=== PATIENT | male | born 1960 | race Caucasian/White ===

== ENCOUNTER 2018-12-10 09:51 | Observation (INO) ==
--- NOTE | 2018-11-29 08:36 | PAT Medication Instructions ---
Medication Instructions Date of Service November 29, 2018 Home Medications atorvastatin 10 mg PO PM tamsulosin [Flomax] 0.4 mg PO HS Take morning of surgery NOTHING TO EAT OR DRINK AFTER MIDNIGHT Take evening before surgery atorvastatin 10 mg PO PM tamsulosin [Flomax] 0.4 mg PO HS Other Notes If you have any questions please call us at [phone] or [phone] or [phone] or [phone]
--- NOTE | 2018-11-29 09:24 | Anesthesiology Consultation ---
Date of Service November 29, 2018 Assessment & Plan (1) Encounter for pre-operative examination: Chart Review Chart Review: Acceptable Risk for Surgery and Patient seen in Pre Admission Testing Consults Requested none Teaching & Discussion Pre-Anesthesia Teaching/Discussion Notes: Instructed NPO after midnight before surgery, except medications with 15 cc of water. Medication instructions provided according to the PAT guidelines. History Surgery Operation Date: 12/10/18 10:45 Proposed Procedures p Transurethral Resection Prostate - Satish Haywood MD Height/Weight Height: 5 ft 9 in Weight: 95.9 kg Allergies Allergy/AdvReac Type Severity Reaction Status Date / Time No Known Allergies Allergy Unknown Verified 11/27/18 08:15 Medications Home Medications Medication Instructions Recorded Confirmed Last Taken atorvastatin 10 mg PO PM 11/27/18 11/27/18 Unknown tamsulosin [Flomax] 0.4 mg PO HS 11/27/18 11/27/18 Unknown Past Medical History Medical History BPH (benign prostatic hyperplasia) History of abnormal electrocardiogram PT STATES HE HAD AN EKG 8 YEARS PRIOR THAT WAS ABNORMAL. PT HAD A STRESS TEST AND EVAL WHICH WAS NEGATIVE. NO FURTHER DIAGNOSTICS, NO COMPLICATIONS. Hyperlipidemia Past Surgical History Surgical History History of appendectomy History of colonoscopy History of excision of pilonidal cyst History of total hip arthroplasty RIGHT Past Anesthesia History No Hx of Anesthesia Complications (Does get panicky with anesthesia he thinks. ) and No Family Hx of Anesthesia Complications History of PONV No Motion Sickness Screening History of Motion Sickness: No Social History Smoking Status: Never smoker Do You Dip or Chew Tobacco: No (QUIT 2 MONTHS AGO. ) Hx Alcohol Use: Yes Alcohol type: other alcohol intake frequency: holidays/special occasions only Hx Substance Use: No substance use type: does not use Exercise / Class Metabolic Activity II 4-5 Yardwork/Stairs/Walk up hill (Goes to gym for 45 minutes 3 times per week and also walks a few miles 3 times per week. Able to climb FOS. Denies CP or SOB. ) Review of Systems Patient denies chest pain, shortness of breath, dyspnea on exertion, reflux, cough, wheezing, palpitations. +joint pain (left hip) Physical Exam Vital Signs BP: 162/94 P: 63 R: 16 T: 98.5 SPO2: 97% on RA ENMT Thyromental Distance: > or= 3.5 Finger Breadths (3.5) Mallampati Class: III Neck normal visual inspection and trachea midline; neck extension not limited Respiratory normal respiratory effort Auscultation: lungs clear to auscultation bilaterally Cardiovascular Rate/Rhythm: regular rate and regular rhythm Heart Sounds: no murmur Vessels: no carotid bruit Neurologic moves all extremities Psychiatric Orientation: alert and oriented x 3 Testing Electrocardiogram Date: 11/29/18 Findings: + SB @ (59) and + no change from (11/23/04) Left axis deviation. Chest X-Ray Date: 11/29/18 Findings: + NAD Other Testing CT ABD/PELVIS 11/22/18: IMPRESSION: 1. Moderate bilateral hydronephrosis and hydroureter, likely secondary to bladder outlet obstruction 2. Distended bladder measuring 17 cm in length. The bladder is thick walled trabeculated and there is a small bladder diverticulum. This is likely secondary to bladder outlet obstruction secondary to enlarged prostate 3. Markedly enlarged prostate (8 cm) 4. No evidence of bowel obstruction. No evidence of free air. Laboratory Results 11/29/18 09:42 11/29/18 09:42 BUN/Cr are improving.
--- NOTE | 2018-11-29 10:06 | XRay Report ---
XR chest Pre-admission PA/Lat CLINICAL HISTORY: pat preoperative evaluation COMPARISON STUDY: No previous studies for comparison. FINDINGS: The bones soft tissues and hemidiaphragms are normal. The cardiomediastinal silhouette is n ormal. The lungs are clear. The pulmonary vasculature is normal. IMPRESSION: Negative chest. The above report was generated using voice recognition software. It may contain grammatical, syntax or spelling errors. Electronically signed by: Rocky Howard M.D. 11/29/2018 10:05 AM
[2018-11-29 11:37] LABS: Basophils # (auto) 0.02 K/uL (0-0.2); Basophils % (auto) 0.2 %; Eosinophils # (auto) 0.17 K/uL (0-0.5); Eosinophils % (auto) 1.4 %; Hematocrit (blood only) 42.9 % (42-52); Hemoglobin 14.2 g/dL (14.0-18.0); Immature Granulocytes # (auto) 0.05 K/uL (0.00-0.02); Immature Granulocytes % (auto) 0.4 %; Lymphocytes # (auto) 1.57 K/uL (1.2-3.4); Lymphocytes % (auto) 12.9 %; Mean Corpuscular Hgb Conc 33.1 g/dL (32-36); Mean Corpuscular Volume 93.1 fL (80-100); Mean Platelet Volume 10.5 fL (7.4-10.4); Monocytes # (auto) 1.16 K/uL (0.11-0.59); Monocytes % (auto) 9.6 %; Neutrophils # (auto) 9.16 K/uL (1.4-6.5); Neutrophils % (auto) 75.5 %; Platelet Count 303 K/uL (130-400); RDW Coefficient of Variation 12.5 % (11.5-14.5); RDW Standard Deviation 42.2 fL (36.4-46.3); Red Blood Count 4.61 M/uL (4.7-6.1); White Blood Count 12.13 K/uL (4.8-10.8)
[2018-11-29 11:44] LABS: BUN Creatinine Ratio 15.3 (10-20); Calcium 9.5 mg/dl (8.5-10.1); Creatinine Clr Calc Pharmacy 46.3 ml/min; Est GFR (African American) 42.4; Est GFR (Non-African American) 36.6; Potassium 4.3 mmol/L (3.5-5.1)
[~2018-12-10 09:51] MED LIST: SODIUM CHLORIDE 0.9% 1000ML IV SCH; cefTRIAXone SODIUM 1,000 MG in DEXTROSE 5% 50 ML IV SCH
[2018-12-10] MEDS ORDERED: PHENYLEPHRINE 100MCG/ML 5ML SYR IV PRN (11:45)
[2018-12-10] MEDS ORDERED: ATROPINE SULFATE 0.1 MG/ML 10ML SYR IV PRN (11:45)
[2018-12-10] MEDS ORDERED: fentaNYL citrate 100 MCG/2 ML VIAL IV PRN (11:45)
[2018-12-10] MEDS ORDERED: PROMETHAZINE HCL 12.5 MG in SODIUM CHLORIDE 0.9% 50 ML IV PRN (11:45)
[2018-12-10] MEDS ORDERED: ePHEDrine sulfate 50 MG/ML AMP IV PRN (11:45)
[2018-12-10] MEDS ORDERED: HYDROmorphone INJ 1 MG/ML SYRINGE IV PRN (11:45)
[2018-12-10] MEDS ORDERED: ONDANSETRON INJ 2 MG/ML 2 ML VIAL IV PRN (11:45)
[2018-12-10] MEDS ORDERED: LIDOCAINE HCL 2% 2 ML VIAL/AMP(20MG/ML) INFIL ONE (12:18)
[2018-12-10] MEDS ORDERED: ONDANSETRON INJ 2 MG/ML 2 ML VIAL ONE (12:18)
[2018-12-10] MEDS ORDERED: fentaNYL citrate 100 MCG/2 ML VIAL ONE ×2 (12:18→13:51)
[2018-12-10] MEDS ORDERED: PROPOFOL IV EMULSION 10 MG/ML 20 ML VIAL IV ONE (12:18)
[2018-12-10] MEDS ORDERED: DEXAMETHASONE SOD INJ 4 MG/ML VIAL ONE (12:18)
[2018-12-10] MEDS ORDERED: MIDAZOLAM HCL 1 MG/ML 2ML VIAL ONE (12:19)
--- NOTE | 2018-12-10 12:42 | History & Physical Bridge Note ---
Date of Service December 10, 2018 History & Physical Bridge Note I have examined the patient, reviewed the History & Physical and in the interval since the performance of the History & Physical I have noted the following changes of clinical significance: no changes noted
[2018-12-10] MEDS ORDERED: GLYCOPYRROLATE 0.2 MG/ML VIAL ONE (14:43)
--- NOTE | 2018-12-10 15:27 | Operative Report ---
Post Operative Report Pre & Post Diagnosis Operation Date: 12/10/18 11:35 Pre-Op Diagnosis: Urinary Retention, Hydronephrosis Post-Op Diagnosis: Urinary Retention, Hydronephrosis Procedure Operation Date: 12/10/18 11:35 Actual Procedures p Cystoscopy, Transurethral Resection of the Prostate - Satish Haywood MD Surgeon Brenden Haywood MD Motor Vehicle Salesperson none Estimated Blood Loss 20 Findings Consistent with Post-Op Diagnosis Specimens Prostate chips Description of Procedure Patient was identified in the preoperative holding area, appropriate informed consents reviewed and completed and the patient was transported to the operating suite. Upon arrival he received appropriate preoperative antibiotics the form of ceftriaxone. Adequate general anesthesia was achieved, patient placed in dorsal lithotomy position where sterilely prepped and draped in standard fashion. Of note the patient is previously been in urinary retention with renal failure and bilateral hydronephrosis, suspected to occur secondary to an extremely large prostate causing obstruction. To begin my case, I passed a 27 Swazi resectoscope with 30 degree lens and visual obturator. Inspection revealed substantial lateral lobe hypertrophy, very long prostate and a large intravesical median lobe. After inserting my scope maximally, I could barely reached the true lumen of the bladder secondary to the length of the prostate and intravesical median lobe. I was able to visualize the ureteral orifices are not along the sides of the intravesical median lobe. With care to avoid encroachment upon this, I passed a button electrode and I incised at 5 and 7:00 underneath the median lobe. I then exchange the button for a resecting loop and resected the intravesical median lobe flush with the bladder neck. This greatly improved my visualization. This was a significant amount of tissue that was removed. I then turned my attention the left lateral lobe and utilizing a combination of the button and loop electrode, I resected the left lateral lobe followed by the right lateral lobe. After working for nearly 2-1/2 hours, I felt that we had reached a good stopping point, and I obtain meticulous hemostasis and evacuated all chips. The chips were collected and passed off the table. Inspection revealed some still redundant lateral lobe tissue as he certainly has more tissue which is resectable, however appears that his prostatic urethra is widely patent and drastically improved from his preoperative status. After confirming again excellent hemostasis and that all chips had been evacuated, I left the bladder full and withdrew the scope. I placed a 22 Swazi three-way Bella catheter the patient was reversed from anesthesia and taken to the PACU in stable condition. There were no complications. I attest to the content of the Intraoperative Record and any orders documented therein. Any exceptions are noted below.
[2018-12-10] MEDS ORDERED: ACETAMINOPHEN 325 MG TAB PO PRN (15:38)
[2018-12-10] MEDS ORDERED: HYDROCODONE/ACETAMOPHEN 5/325MG TAB PO PRN ×2 (15:38)
[2018-12-10] MEDS ORDERED: LABETALOL HCL IV 5 MG/ML 20ML IV ONE (16:11)
[2018-12-10] MEDS: LABETALOL HCL IV 5 MG/ML 20ML IV PRN ×3 (16:15→16:26)
--- NOTE | 2018-12-10 16:43 | Anesthesiology Progress Note ---
Date of Service December 10, 2018 Anesthesia Post Procedure Vital Signs Vital Signs: Temp Pulse Pulse Resp BP BP Pulse Ox 12/10/18 16:21 69 14 155/98 H 98 12/10/18 16:20 75 21 98 12/10/18 16:16 70 9 L 163/97 H 98 12/10/18 16:15 82 12 98 12/10/18 16:11 78 10 L 163/95 H 99 12/10/18 16:10 84 20 99 12/10/18 16:07 77 16 170/92 H 98 12/10/18 16:06 81 15 165/92 H 98 12/10/18 16:05 92 H 26 H 96 12/10/18 16:01 91 H 13 164/97 H 100 12/10/18 16:00 85 15 97 12/10/18 15:56 86 16 149/91 H 100 12/10/18 15:55 84 19 100 12/10/18 15:51 86 17 168/92 H 97 12/10/18 15:50 87 21 100 12/10/18 15:46 83 12 167/88 H 100 12/10/18 15:45 86 18 98 12/10/18 15:41 84 19 171/93 H 100 12/10/18 15:40 79 12 100 12/10/18 15:36 79 15 171/109 H 100 12/10/18 15:34 80 18 162/110 H 100 12/10/18 15:33 36.4 C L 78 16 162/110 H 99 12/10/18 15:32 99 12/10/18 10:35 37 C 67 16 169/94 H 98 Notes Mental Status: alert / awake / arousable and participated in evaluation Patient Amnestic to Procedure: Yes Nausea / Vomiting: adequately controlled Pain: adequately controlled and improving with treatment Airway Patency, RR, SpO2: stable & adequate BP & HR: stable & adequate (Improved with labetalol) Hydration State: stable & adequate Anesthetic Complications: no major complications apparent and Pt Satisfied with anesthetic care
[2018-12-10] MEDS: LACTATED RINGER'S 1,000 ML IV SCH (19:43)
[2018-12-10] MEDS: CEFAZOLIN 2000MG 2,000 MG/15 ML SYR IV SCH (20:26)
[2018-12-10] MEDS ORDERED: ATORVASTATIN 10 MG TAB PO SCH (21:00)
[2018-12-11] MEDS: CEFAZOLIN 2000MG 2,000 MG/15 ML SYR IV SCH (04:36)
[2018-12-11] MEDS: LACTATED RINGER'S 1,000 ML IV SCH ×2 (05:24→10:03)
--- NOTE | 2018-12-11 08:05 | Urology Progress Note ---
Date of Service December 11, 2018 Assessment & Plan (1) Urinary retention due to benign prostatic hyperplasia: POD #1 s/p TURP for retention and obstructive renal failure - VT now - presuming good void, plan for d/c home later today Subjective no major issues overnight - tolerated slow CBI without issue - when running slowly, urine is crystal clear - light pink after it was stopped for 1 hour (per nursing) Physical Exam 2 Vital Signs (Past 24 Hours): Last Vital Signs Temp 36.7 C 12/11/18 07:45 Pulse 56 L 12/11/18 07:45 Resp 18 12/11/18 07:45 BP 137/79 12/11/18 07:45 Pulse Ox 94 12/11/18 07:45 Physical Exam: NAD AAox3 no resp distress RRR abd soft urine clear (CBI off now)
--- NOTE | 2018-12-11 08:07 | Anesthesiology Progress Note ---
Date of Service December 11, 2018 Anesthesia Post Procedure Vital Signs Vital Signs: Temp Pulse Pulse Pulse Resp BP BP 12/11/18 07:45 36.7 C 56 L 18 137/79 12/11/18 03:20 37.6 C H 56 L 16 133/79 12/10/18 23:10 37.1 C 58 L 18 119/65 12/10/18 19:30 37 C 62 16 162/84 H 12/10/18 18:55 37.5 C 66 20 153/95 H 12/10/18 17:55 36.9 C 66 20 147/81 H 12/10/18 17:25 36.8 C 66 20 163/93 H 12/10/18 16:55 36.5 C 70 20 133/77 12/10/18 16:21 69 14 155/98 H 12/10/18 16:20 75 21 12/10/18 16:16 70 9 L 163/97 H 12/10/18 16:15 82 12 12/10/18 16:11 78 10 L 163/95 H 12/10/18 16:10 84 20 12/10/18 16:07 77 16 170/92 H 12/10/18 16:06 81 15 165/92 H 12/10/18 16:05 92 H 26 H 12/10/18 16:01 91 H 13 164/97 H 12/10/18 16:00 85 15 12/10/18 15:56 86 16 149/91 H 12/10/18 15:55 84 19 12/10/18 15:51 86 17 168/92 H 12/10/18 15:50 87 21 12/10/18 15:46 83 12 167/88 H 12/10/18 15:45 86 18 12/10/18 15:41 84 19 171/93 H 12/10/18 15:40 79 12 12/10/18 15:36 79 15 171/109 H 12/10/18 15:34 80 18 162/110 H 12/10/18 15:33 36.4 C L 78 16 162/110 H 12/10/18 15:32 12/10/18 10:35 37 C 67 16 169/94 H Pulse Ox 12/11/18 07:45 94 12/11/18 03:20 95 12/10/18 23:10 94 12/10/18 19:30 95 01/28/19 18:55 96 12/10/18 17:55 96 12/10/18 17:25 96 12/10/18 16:55 95 12/10/18 16:21 98 12/10/18 16:20 98 12/10/18 16:16 98 12/10/18 16:15 98 12/10/18 16:11 99 12/10/18 16:10 99 12/10/18 16:07 98 12/10/18 16:06 98 12/10/18 16:05 96 12/10/18 16:01 100 12/10/18 16:00 97 12/10/18 15:56 100 12/10/18 15:55 100 12/10/18 15:51 97 12/10/18 15:50 100 12/10/18 15:46 100 12/10/18 15:45 98 12/10/18 15:41 100 12/10/18 15:40 100 12/10/18 15:36 100 12/10/18 15:34 100 12/10/18 15:33 99 12/10/18 15:32 99 12/10/18 10:35 98 Pain Intensity Sacrum: Pain Intensity: 3 Notes Mental Status: alert / awake / arousable and participated in evaluation Nausea / Vomiting: adequately controlled Pain: adequately controlled Airway Patency, RR, SpO2: stable & adequate BP & HR: stable & adequate Hydration State: stable & adequate Anesthetic Complications: Pt Satisfied with anesthetic care
[2018-12-11 08:41] LABS: Basophils # (auto) 0.01 K/uL (0-0.2); Basophils % (auto) 0.1 %; Eosinophils # (auto) 0.02 K/uL (0-0.5); Eosinophils % (auto) 0.1 %; Hematocrit (blood only) 32.5 % (42-52); Hemoglobin 11.1 g/dL (14.0-18.0); Immature Granulocytes # (auto) 0.06 K/uL (0.00-0.02); Immature Granulocytes % (auto) 0.4 %; Lymphocytes # (auto) 1.43 K/uL (1.2-3.4); Lymphocytes % (auto) 8.7 %; Mean Corpuscular Hgb Conc 34.2 g/dL (32-36); Mean Corpuscular Volume 91.3 fL (80-100); Mean Platelet Volume 9.2 fL (7.4-10.4); Monocytes # (auto) 1.43 K/uL (0.11-0.59); Monocytes % (auto) 8.7 %; Platelet Count 338 K/uL (130-400); RDW Coefficient of Variation 12.4 % (11.5-14.5); Red Blood Count 3.56 M/uL (4.7-6.1); White Blood Count 16.45 K/uL (4.8-10.8)
[2018-12-11 09:22] LABS: Calcium 9.1 mg/dl (8.5-10.1); Creatinine Clr Calc Pharmacy 70.6 ml/min; Est GFR (African American) 71.4; Est GFR (Non-African American) 61.6; Potassium 3.9 mmol/L (3.5-5.1)
--- NOTE | 2018-12-20 10:11 | Discharge Summary ---
Date of Service December 20, 2018 Admission HPI Per Admitting Provider Urinary retention, bilateral hydronephrosis, renal failure Principal Diagnosis Urinary retention with hydronephrosis and renal failure Discharge Data Allergies Allergy/AdvReac Type Severity Reaction Status Date / Time No Known Allergies Allergy Unknown Verified 12/10/18 10:33 Procedures Performed Operation Date: 12/10/18 11:35 Actual Procedures p Cystoscopy, Transurethral Resection of the Prostate - Satish Haywood MD Hospital Course (1) Urinary retention due to benign prostatic hyperplasia: Admitted for TURP - tolerated procedure very well - progressed appropriately overnight - passed a voiding trial on the morning of POD#1 - d/c home in stable condition Total Time Total Time Spent Total Time Spent (In Minutes): 30 Total Time Includes: Examination of the Patient, Discharge Planning, Medication Reconciliation, Communication With Other Providers and Other Discharge Plan Discharge Items Patient Disposition: Home - Self-Care Reason For Visit: Urinary Retention, Hydronephrosis Discharge Diagnosis: Urinary Retention, Hydronephrosis Discharge Goals: Improve disease control, Improve function, Prevent disease and Therapeutic intervention Activity: Resume your previous activity Lifting: Gradually increase as tolerated Bathing: No limitations Sexual Activity: Wait until after follow-up appointment Exercise/Sports: Rest today and Gradually increase as tolerated Driving/Machine Use: Resume 1 day after discharge Non-emergency contact: Urologist Call non-emergency contact if: you have any medication questions, your pain is not controlled, your pain is concerning for you and your temperature is above 101 Follow-up/Referrals: Devon Nascimento [Primary Care Provider] - Diet: Regular Addtl Provider Instructions: Please keep all follow-up appointments as scheduled. Please contact our office at [phone] with any concerns, questions or need to change appointment times for any reason. It is normal to see blood in your urine over the course of the next month to 6 weeks. If you have significant burning with urination, you can use AZO (available over the counter). Please note this may turn your urine a darker, orange-mary color. Please use stool softener (Colace) twice a day for the first two weeks to prevent constipation and straining. You can then use it as needed after that. Continue Flomax until follow up appointment. Take bladder medicine (Trospium) twice daily as needed for urinary frequency or bladder pain. Finish antibiotic (Doxycycline) completely. Prescriptions: New docusate sodium [Colace] 100 mg capsule 100 mg PO BID PRN (Reason: constipation) Qty: 60 RF: 0 trospium 20 mg tablet 20 mg PO BID PRN (Reason: urinary frequency) Qty: 20 RF: 0 Continue atorvastatin 10 mg Tablet 10 mg PO PM RF: 0 tamsulosin [Flomax] 0.4 mg Capsule 0.4 mg PO HS RF: 0 Stand-Alone Forms: [facility] Discharge Orders: Discharge Order (Routine); Ordered 12/11/18 Ordered By: Romana Hernandez Admission Data Admit Date/Time: 12/10/18 15:38 Attending Provider: Satish Haywood Admit Provider: Satish Haywood Primary Care Provider: Devon Nascimento Service: Surgical Services Other Interventions: Discharge Summary Assessment (RN) Last Done: 12/11/18 11:44 Pending Studies at Discharge: Yes Studies:: pathology DC Date/Time DO NOT enter until pt leaves facility: 12/11/18 14:02
== END 2018-12-11 14:02 | disposition home or self-care (01) ==
LOC: ASU 09:51 → 3W 09:51

== ENCOUNTER 2024-07-23 10:55 | Observation (INO) ==
--- NOTE | 2024-07-22 13:57 | Anesthesiology Consultation ---
Date of Service July 22, 2024 Assessment & Plan (1) Encounter for pre-operative examination: - Notation placed for OR to be cautious with hip positioning. - Per precision aircraft structure assembler on 07/22/24: No known infectious disease contacts, current infectious disease symptoms in past 10 days or COVID positive test result in the past 30 days. Chart Review Chart Review: Acceptable Risk for Surgery and Patient NOT seen in Pre Admission Testing History Surgery Operation Date: 07/23/24 12:35 Proposed Procedures p TURP (Transurethral Resection of Prostate) - Brenden Haywood MD Height/Weight Height: 5 ft 8 in Weight: 97 kg Allergies Allergy/AdvReac Type Severity Reaction Status Date / Time No Known Allergies Allergy Unknown Verified 07/22/24 14:24 Medications Home Medications Medication Instructions Recorded Confirmed Last Taken rosuvastatin 10 mg tablet 10 mg PO HS 02/05/21 07/22/24 Unknown latanoprost 0.005 % eye drops 1 drp ophthalmic (eye) HS 07/05/23 07/22/24 Unknown Past Medical History Medical History Glaucoma (increased eye pressure) Gross hematuria resolved, ended up 07/21/24 Hyperlipidemia Prostate cancer dx 2012 Past Family History Family History Mother Hypertension Other Cardiac disorder No family history of adverse response to anesthesia Past Surgical History Surgical History (Updated 07/22/24 @ 14:42 by Norma Fortune) History of appendectomy History of colonoscopy History of excision of pilonidal cyst History of total hip arthroplasty Right History of urologic surgery blood clot removed from bladder S/P TURP 2019>with this previous surgery they "spread his hips too far and he was very sore afterward" [place] teeth extracted Social History Smoking Status: Never smoker Do You Dip or Chew Tobacco: No (Quit 6 months ago) Hx Alcohol Use: Yes Alcohol type: beer alcohol intake frequency: a few times a week Hx Substance Use: No substance use type: does not use Lab Results Anesthesia Preop Results Results Anesthesia Widget: WBC 7.72 K/ul (4.8-10.8) 06/24/24 Hgb 16.0 g/dl (14.0-18.0) 06/24/24 Hct 45.5 % (42.0-52.0) 06/24/24 Plt 245 K/uL (130-400) 06/24/24 Na 137 mmol/L (136-145) 06/24/24 K 4.2 mmol/L (3.5-5.1) 06/24/24 Cl 105 mmol/L (98-107) 06/24/24 CO2 24 mmol/L (21-32) 06/24/24 BUN 22 mg/dl (6-23) 06/24/24 Creat 0.94 mg/dl (0.6-1.4) 06/24/24 Glucose Level 109 mg/dl (70-99(Fasting)) H 06/24/24 Urine Appearance Clear 06/19/24 Testing Electrocardiogram Date: 06/24/24 Sinus bradycardia, rate 47 bpm Left axis deviation Chest X-Ray Date: 06/24/24 No acute process.
[2024-07-23] MEDS ORDERED: HYDROmorphone INJ 2 MG/ML SYR/VIAL IV PRN (11:37)
[2024-07-23] MEDS ORDERED: PROMETHAZINE HCL 6.25 MG in SODIUM CHLORIDE 0.9% 50 ML IV PRN (11:37)
[2024-07-23] MEDS ORDERED: ePHEDrine sulfate 50 MG/ML AMP IV PRN (11:37)
[2024-07-23] MEDS ORDERED: ATROPINE SULFATE 0.1 MG/ML 10ML SYR IV PRN (11:37)
[2024-07-23] MEDS ORDERED: DEXAMETHASONE SOD INJ 4 MG/ML VIAL ONE (11:38)
[2024-07-23] MEDS ORDERED: PROPOFOL IV EMULSION 10 MG/ML 20 ML VIAL IV ONE (11:38)
[2024-07-23] MEDS ORDERED: LIDOCAINE 2% 2 ML VIAL/AMP(20MG/ML) INFIL ONE (11:38)
[2024-07-23] MEDS: LR 15ML/HR IV SCH (11:38)
[2024-07-23] MEDS ORDERED: ONDANSETRON INJ 2 MG/ML 2 ML VIAL ONE (11:38)
[2024-07-23] MEDS ORDERED: MIDAZOLAM HCL 1 MG/ML 2ML VIAL ONE (11:40)
[2024-07-23] MEDS ORDERED: fentaNYL citrate PF 100 MCG/2 ML VIAL ONE ×2 (11:40→13:50)
--- NOTE | 2024-07-23 11:46 | History & Physical Bridge Note ---
Date of Service July 23, 2024 History & Physical Bridge Note I have examined the patient, reviewed the History & Physical and in the interval since the performance of the History & Physical I have noted the following changes of clinical significance: no changes noted
[2024-07-23] MEDS: CIPROFLOXACIN / D5W 400 MG/200 ML BAG IV SCH ×2 (12:08→16:55)
[2024-07-23] MEDS ORDERED: GLYCOPYRROLATE 0.2 MG/ML VIAL ONE (12:23)
[2024-07-23] MEDS ORDERED: ePHEDrine sulfate 50 MG/5 ML SYR ONE (12:26)
[2024-07-23] MEDS ORDERED: ACETAMINOPHEN 1000 MG/100 ML IV IV ONE (13:29)
--- NOTE | 2024-07-23 14:32 | Operative Report ---
PG Post Operative Report Pre & Post Diagnosis Operation Date: 07/23/24 12:35 Pre-Op Diagnosis: Malignant Neoplasm of Prostate, Benign Prostatic Hyperplasia Post-Op Diagnosis: Malignant Neoplasm of Prostate, Benign Prostatic Hyperplasia I identified the patient and participated in the time-out.: Yes Procedure Operation Date: 07/23/24 12:35 Actual Procedures p Transurethral Resection of Prostate(Not Applicable) - Brenden Haywood MD Surgeon Brenden Haywood MD Personal Fitness Trainer none Estimated Blood Loss 25 Findings Consistent with Post-Op Diagnosis Specimens Prostate chips for routine pathology Description of Procedure The patient was identified in the preoperative holding area, appropriate informed consents were reviewed and completed and the patient was transferred to the operative suite. Upon arrival, appropriate antibiotics and anesthesia were administered and the patient was placed in dorsal lithotomy position and prepped and draped in sterile fashion. We in the case to pass a 27 Swazi resectoscope with 30 degree lens and visual obturator. His urethra is healthy but his prostate is extraordinarily large. I scoped him in the office recently and he has an extremely significant intravesical component of his prostate. I was able to navigate into the bladder with my rigid scope however visualization was quite compromised because of the prostatic urethral length. I was able to identify the right UO upon entry but I could not see the left UO. I did feel comfortable that I had an idea of where the anatomy was so I began utilizing a loop electrode to resect the intravesical portion of this prostate. This took a significant amount of time. After feeling that I cleared the majority of the intravesical component, I was able to find the left UO. I then proceeded to resect the left lateral lobe followed by the right lateral lobe. He had redundant anterior and posterior tissue as well. I resected this tissue until I felt that his primary prostatic urethra was patent and hemostatic. Upon reentry I noted that there was still a small component of intravesical tissue from the right anterior/upper lateral lobe. I was able to resect this utilizing a loop electrode. This entirely opened the bladder neck and I saw no further intravesical component. He has several shallow diverticuli. I evacuated all chips out of these. Both UOs were easily identified. Hemostasis was excellent. I passed a huge quantity of prostatic tissue off the table as a specimen. I then placed a 22 Swazi three-way Bella catheter without difficulty. There were no complications. He tolerated the procedure well. I attest to the content of the Intraoperative Record and any orders documented therein. Any exceptions are noted below.
--- NOTE | 2024-07-23 14:58 | Anesthesiology Progress Note ---
Date of Service July 23, 2024 Anesthesia Post Procedure Vital Signs Vital Signs: Temp Pulse Resp BP Pulse Ox O2 Del Method O2 Flow Rate 07/23/24 14:55 52 L 16 117/69 96 Room Air 07/23/24 14:45 52 L 16 123/67 98 Oxymask 5 07/23/24 14:35 49 L 16 111/63 96 Oxymask 5 07/23/24 14:25 37.0 C 53 L 16 115/68 96 Oxymask 5 07/23/24 11:05 36.7 C 48 L 18 163/89 H 98 Room Air Transfer of Care Handoff Completed per policy Notes Mental Status: alert / awake / arousable Patient Amnestic to Procedure: Yes Nausea / Vomiting: adequately controlled Pain: adequately controlled Airway Patency, RR, SpO2: stable & adequate BP & HR: stable & adequate Hydration State: stable & adequate Anesthetic Complications: no major complications apparent and Pt Satisfied with anesthetic care
[2024-07-23] MEDS ORDERED: ACETAMINOPHEN 500 MG TAB PO PRN (16:32)
[2024-07-23] MEDS ORDERED: PHENAZOPYRIDINE HCL 200 MG TAB PO PRN (16:32)
[2024-07-23] MEDS ORDERED: ONDANSETRON INJ 2 MG/ML 2 ML VIAL IV PRN (16:32)
[2024-07-23] MEDS: SODIUM CHLORIDE 0.9% 1,000 ML IV SCH (17:03)
[2024-07-23] MEDS: ROSUVASTATIN CALCIUM 10 MG TAB PO SCH (19:47)
[2024-07-23] MEDS: traMADol HCL 50 MG TABLET PO PRN (23:16)
[2024-07-24 03:26] VITALS: O2SAT 94
[2024-07-24 07:45] VITALS: BP 130/71; PULSE 54; RESP 18; TEMP 97.5
[2024-07-24 07:51] LABS: Red Blood Count 4.38 M/uL (4.70-6.10); White Blood Count 16.12 K/ul (4.8-10.8)
[2024-07-24 07:52] LABS: Hemoglobin 13.7 g/dl (14.0-18.0); Mean Corpuscular Hemoglobin 31.3 pg (25.0-34.0); Mean Corpuscular Hgb Conc 34.3 g/dL (32.0-36.0); Mean Corpuscular Volume 91.3 fL (80.0-100.0); Mean Platelet Volume 9.8 fL (9.4-12.4); Platelet Count 235 K/uL (130-400); RDW Coefficient of Variation 12.3 % (11.5-14.5)
[2024-07-24 08:01] LABS: BUN Creatinine Ratio 15.5 (10-20); Calcium 8.5 mg/dl (8.6-10.3); Creatinine Clr Calc Pharmacy 86.3 ml/min; Est GFR (African American) 93.9 ml/min; Potassium 4.1 mmol/L (3.5-5.1)
--- NOTE | 2024-07-24 08:58 | Urology Progress Note ---
Date of Service July 24, 2024 Assessment & Plan (1) Elevated PSA: (2) Prostate cancer: (3) Urinary retention due to benign prostatic hyperplasia: Plan Postop day #1 status post TURPsubstantial amount of tissue removed Urine is clear with slow CBI Clamped this morning Plan for voiding trial and discharge home later today Admission and Anticipated Discharge Date Admission Date: July 23, 2024 Subjective No issues overnight CBI running at a very slow rate and his urine has remained completely clear this morning He has no pain or discomfort Feeling well Physical Exam Physical Exam: CBI clamped and urine clear Results & Data Vital Signs (Past 12 Hours) Vital Signs Temp Pulse Resp BP Pulse Ox O2 Del Method 07/24/24 07:43 36.4 C L 54 L 18 130/71 94 Room Air 07/24/24 03:25 36.6 C 56 L 15 113/64 94 Room Air 07/23/24 21:37 37.2 C 51 L 15 134/66 95 Room Air PG Care Time/CCT Total # of Minutes Spent Total Time Spent with Patient: Total time spent is greater than 50% in coordination of care (as documented) at patient's floor/unit and/or counseling patient: Coding Level of Care Code None Diagnoses Elevated PSA R97.20 Prostate cancer C61 Urinary retention due to benign prostatic hyperplasia N40.1; R33.8
--- NOTE | 2024-07-24 11:23 | Discharge Summary ---
Date of Service July 24, 2024 Admission HPI Per Admitting Provider Patient with BPH and prostate cancer here for transurethral resection of prostate Admission Exam Per Admitting Provider Constitutional well developed and well nourished Neck neck nontender Respiratory normal respiratory effort; no respiratory distress and does not use accessory muscles Cardiovascular Rate/Rhythm: regular rate Vessels: radial pulses present Extremities: no edema Gastrointestinal (Abdomen) Inspection/Auscultation: abdomen normal to inspection Percussion/Palpation: abdomen soft; abdomen nontender and no guarding Musculoskeletal Head/Neck/Chest: normocephalic and head atraumatic Extremities: extremities normal to inspection Skin no rashes and no lesions Trauma: no evidence of skin trauma Neurologic awake; not obtunded Speech / Cognition: normal speech Motor/Sensory: no tremor Psychiatric Orientation: alert and oriented x 3 Genitourinary no CVA tenderness Lymphatic no lymphadenopathy Principal Diagnosis prostate cancer, BPH Discharge Exam Constitutional no acute distress Respiratory normal respiratory effort; no respiratory distress and no labored breathing Gastrointestinal (Abdomen) Inspection/Auscultation: abdomen normal to inspection Musculoskeletal Head/Neck/Chest: normocephalic Neurologic moves all extremities and awake Psychiatric Orientation: alert and oriented x 3 Discharge Data Allergies Allergy/AdvReac Type Severity Reaction Status Date / Time No Known Allergies Allergy Unknown Verified 07/23/24 11:21 Procedures Performed Operation Date: 07/23/24 12:35 Actual Procedures p Transurethral Resection of Prostate(Not Applicable) - Brenden Haywood MD Hospital Course (1) Elevated PSA: (2) Prostate cancer: (3) Urinary retention due to benign prostatic hyperplasia: Plan Postop day #1 status post TURPsubstantial amount of tissue removed Urine is clear with slow CBI Clamped this morning Plan for voiding trial and discharge home later today Patient voiding after catheter removal Expected clinical course reviewed, all questions answered Patient is ready for discharge now, orders placed Total Time Total Time Spent Total Time Spent (In Minutes): 29 Discharge Plan Discharge Items Patient Disposition: Home - Self-Care Reason For Visit: Malignant Neoplasm of Prostate, Benign Prostatic H Discharge Diagnosis: Malignant neoplasm of prostate, benign prostatic hyperplasia Activity: Per Instructions section Lifting: No more than 25 pounds Bathing Comment: Okay to shower after discharge Sexual Activity: Wait until after follow-up appointment Exercise/Sports: Wait until after follow-up appointment Non-emergency contact: Surgeon and Urologist Call non-emergency contact if: your pain is not controlled and your temperature is above 101 Follow-up/Referrals: Brenden Haywood MD [Physician] - 08/12/24 9:30 am Devon Nascimento [Primary Care Provider] - Diet: Regular Addtl Attending Provider Instructions: Please take all medications as prescribed and keep all follow-ups as scheduled. Please call our office at [phone] with any questions, concerns or need to reschedule appointments for any reason. We are happy to assist you. Tips for your recovery at home: Dont be alarmed by brownish or reddish blood or clots in your urine. This is a result of the procedure. This may occur off and on for weeks to months after the procedure but should continue to improve. Drink plenty of fluids during the day (enough to keep your urine very light colored). This will help keep a healthy flow of urine. Do not lift >25 lbs until your followup Avoid constipation. Please use a stool softener (Colace) for the first two weeks after your procedure Be sure to finish the antibiotics as prescribed. If you go home with a catheter, please wash tubing where it enters your body twice daily with mild soap (Dove or Dial). Once your catheter is removed, expect some blood in your urine and some burning when you urinate. You should have an appointment to have this removed, if you do not please call our office to arrange. Pending Studies at Discharge: Yes Stand-Alone Forms: My [employer], Smoking Cessation Medications and DC Order Prescriptions: New ciprofloxacin HCl 500 mg tablet 500 mg PO BID Qty: 6 0RF phenazopyridine [Pyridium] 200 mg tablet 200 mg PO Q8H PRN (Reason: pain) Qty: 7 0RF Continued rosuvastatin 10 mg tablet 10 mg PO HS latanoprost 0.005 % Drops 1 drp OPHTHALMIC (EYE) HS Discharge Orders: Discharge Order (Routine); Ordered 07/24/24 Ordered By: Yanna Plummer/Other Patient Handouts: TURP Home Recovery Admission Data Admit Date/Time: 07/23/24 14:29 Attending Provider: Brenden Haywood Admit Provider: Brenden Haywood Primary Care Provider: Devon Nascimento Other Interventions: Discharge Summary Assessment (RN) Last Done: 07/24/24 11:34 Coding Level of Care Code 10890 IN/OBS DISCH 30 MIN/LESS Diagnoses Elevated PSA R97.20 Prostate cancer C61 Urinary retention due to benign prostatic hyperplasia N40.1; R33.8
== END 2024-07-24 11:48 | disposition home or self-care (01) ==
LOC: ASU 10:55 → PACUINP 10:55 → 3E 16:16